=== PATIENT | female | born 1950 | race Two or more races ===

== ENCOUNTER 2018-07-21 09:02 | Outpatient (CLI) | payer OTHER | END 2018-07-21 09:13 | disposition home or self-care (01) | LOC: TOM 09:02 | DX: R10.9 Unspecified abdominal pain (principal) | CPT/HCPCS: 74178; Q9965 ==

== ENCOUNTER → 2018-07-27 | Outpatient (CLI) | payer OTHER | END | disposition home or self-care (01) | LOC: MRI 09:15 | DX: R10.9 Unspecified abdominal pain (principal) | CPT/HCPCS: 74181 ==

== ENCOUNTER 2018-07-29 09:56 | Outpatient (CLI) | payer OTHER | END 2018-07-29 13:45 | disposition home or self-care (01) | LOC: SONOGRAMA 09:56 → MAMO-SONO 14:45 | DX: R10.2 Pelvic and perineal pain (principal) ==

== ENCOUNTER 2019-05-07 19:46 | Emergency (ER) | payer OTHER ==
[~2019-05-07] VITALS: Ht 152.4 cm; Wt 52.2 kg
[2019-05-07] MEDS ORDERED: SYNTHROID75 MCG (20:05)
[2019-05-07] MEDS ORDERED: SIMVASTATIN5 MG (20:05)
[2019-05-07] MEDS ORDERED: ABATINEX680 MG (20:05)
== END 2019-05-08 02:32 | disposition home or self-care (01) ==
LOC: ER 19:46
DX: M51.36 Other intervertebral disc degeneration, lumbar region (principal)

== ENCOUNTER 2020-02-22 09:24 | Outpatient (CLI) | payer OTHER ==
[~2020-02-22 09:24] MED LIST: ABATINEX680 MG; SIMVASTATIN5 MG; SYNTHROID75 MCG
== END 2020-02-22 09:31 | disposition home or self-care (01) ==
LOC: RX STUDY 09:24
PROVIDERS: ATTEND Internal Medicine Gastroenterology
DX: K21.00 Gastro-esophageal reflux disease with esophagitis, without bleeding (principal); R10.13 Epigastric pain

== ENCOUNTER 2021-06-03 11:47 | Outpatient (CLI) | payer OTHER | END 2021-06-03 12:03 | disposition home or self-care (01) | LOC: RAD 11:47 | PROVIDERS: ATTEND Internal Medicine Cardiovascular Disease | DX: M19.90 Unspecified osteoarthritis, unspecified site (principal); M40.47 Postural lordosis, lumbosacral region ==